=== PATIENT | male | born 2005 | race Caucasian/White ===

== ENCOUNTER 2024-09-16 15:49 | Emergency (ER) | payer BC, SELFPAY ==
[2024-09-16 15:53] VITALS: BP 114/75; PULSE 89; RESP 20; TEMP 36.6; O2SAT 100; BMI 24.1
--- NOTE | 2024-09-16 16:04 | ED_ITS ---
HPI - General Adult General Chief complaint: Nausea/Vomiting Stated complaint: urinating blood, puking Time Seen by Provider: 09/16/24 16:03 History of Present Illness HPI narrative: Patient here intermittent blood in urine over the last two weeks and today having nausea and vomiting. Had exposure to coworker that had influenza A and is now hospitalized. 19-year-old man presenting to the emergency department with concern of intermittent bleeding at the end of urination or last couple of weeks. Today had sudden onset of nausea with vomiting. No hematemesis noted. Has not had fever. Currently not nauseated and not experiencing significant pain other than maybe an ache in the right flank. No other discharge noted. Further questioning reveals a history of recurrent urinary tract infections when was young but it does not sound as though there was any evaluation done. A couple of years ago did have a kidney stone as well. This does not feel like that. Co-worker with influenza a. Related Data Home Medications ?Medication ?Instructions ?Recorded ?Confirmed No Known Home Medications 09/16/24 09/16/24 Allergies Allergy/AdvReac Type Severity Reaction Status Date / Time No Known Drug Allergies Allergy Verified 09/16/24 15:53 Review of Systems Status of ROS: Reports: 6 or more systems reviewed and unremarkable except as noted in History and below Exam Narrative: Exam Narrative: Pleasant. Calm. Offers little information without being specifically questioned. Neck is supple with small upper left anterior cervical lymphadenopathy. Oropharynx is unremarkable. Heart in regular rate and rhythm without murmur or gallop. Lungs are clear. There is minimal discomfort to percussion in the right flank; mostly flanks are ticklish. Abdomen is soft and nontender although maybe a little bit sore along the rib edge. No masses. Extremities are without edema. Is well-perfused. Declines exam. Denies any lesions injury Const: Vital Signs, click to edit/add: Vital Signs - 24 hr 09/16/24 15:53 Temperature 97.9 F Pulse Rate [Pulse Oximeter] 89 Respiratory Rate 20 Blood Pressure [Ri ght Upper Arm] 114/75 Pulse Oximetry 100 Oxygen Delivery Me thod Room Air Documenting provider has reviewed patient's vital signs: yes Course Vital Signs Vital signs: Initial Vital Signs Temperature 97.9 F 09/16/24 15:53 Temperature Source Temporal Artery Scan 09/16/24 15:53 Pulse Rate 89 09/16/24 15:53 Respiratory Rate 20 09/16/24 15:53 Blood Pressure 114/75 09/16/24 15:53 Blood Pressure Mean 88 09/16/24 15:53 Blood Pressure Position Sitting 09/16/24 15:53 Pulse Oximetry 100 09/16/24 15:53 Oxygen Delivery Method Room Air 09/16/24 15:53 Vital Signs Temperature 97.9 F 09/16/24 15:53 Pulse Rate 89 09/16/24 15:53 Respiratory Rate 20 09/16/24 15:53 Blood Pressure 114/75 09/16/24 15:53 Pulse Oximetry 100 09/16/24 15:53 Oxygen Delivery Method Room Air 09/16/24 15:53 Temperature 97.9 F 09/16/24 15:53 Pulse Rate 89 09/16/24 15:53 Respiratory Rate 20 09/16/24 15:53 Blood Pressure 114/75 09/16/24 15:53 Pulse Oximetry 100 09/16/24 15:53 Oxygen Delivery Method Room Air 09/16/24 15:53 Medical Decision Making MDM Narrative Medical decision making narrative: Unusual that a boy with recurrent urinary tract infections would not have had further evaluation. Certainly a ureteral stone might explain the symptoms though with relatively minimal pain. Waiting for urinalysis. Does not have evidence of nephritic/nephrotic syndrome on initial exam. Has not had a sore throat really. Urethritis possible. Does not feel that needs anything for symptom relief. At this point waiting on urinalysis and will proceed from there. Urinalysis obtained and is showing majority red cells. Not clearly infectious. But will be culturing urine. COVID influenza swab are negative I did discuss next steps and workup with Zeferino. He would prefer not to do anything more noting that he is very tired. It is puzzling to me this history of recurrent urinary tract infections. This might represent a less than painful stone as well. Denies likelihood of STI. We will be culturing your urine and call you with results if need treatment. Be seen for fever, uncontrolled pain, repeated vomiting. I would recommend follow-up in primary care clinic to verify clearing of urine. But also to discuss next steps in workup. Your history of spontaneous urinary tract infections are unusual. Lab Data Lab results reviewed: Yes I reviewed the patient's lab results Labs: Lab Results 09/16/24 09/16/24 Range/Units 16:01 17:00 Urine Color Yellow (Yellow) Urine Appearance Clear (Clear) Urine pH 7.0 (5.0-8.5) Ur Specific [place] 1.020 (1.000-1.030) Urine Protein Negative (Negative) Urine Glucose (UA) Negative (Negative) Urine Ketones Negative (Negative) Urine Blood Trace-lysed A (Negative) Urine Nitrite Negative (Negative) Urine Bilirubin Negative (Negative) Urine Urobilinogen 0.2 (0.2-1.0) Ur Leukocyte Esterase Negative (Negative) Urine RBC 5-10 A (0-2) Urine WBC 2-5 (0-5) Ur Squamous Epith Cells None (None-Few) Urine Bacteria Few A (None) SARS-CoV-2 (PCR) Negative SARS-CoV-2 (Negative) Influenza Type A (PCR) Negative PCR FLU A (Negative) Influenza Type B (PCR) Negative PCR FLU B (Negative) RSV (PCR) Negative PCR RSV (Negative) Discharge Plan Discharge Clinical Impression: Hematuria Patient Disposition: Home w/ Parent or Adult Condition: Stable Additional Instructions: We will be culturing your urine and call you with results if need treatment. Be seen for fever, uncontrolled pain, repeated vomiting. I would recommend follow-up in primary care clinic to verify clearing of urine. But also to discuss next steps in workup. Your history of spontaneous urinary tract infections are unusual. Prescriptions: No Action No Known Home Medications Follow Up/Referrals: Provider,Not a Local [Primary Care Provider] - Stand Alone Forms: [employer] Info Instructions
[2024-09-16 16:40] LABS: PCR FLU A Negative PCR FLU A (Negative); PCR FLU B Negative PCR FLU B (Negative); PCR RSV Negative PCR RSV (Negative); SARS PCR* Negative SARS-CoV-2 (Negative)
[2024-09-16 17:13] LABS: Appearance Urine Clear (Clear); Bilirubin Urine Negative (Negative); Blood Urine Trace-lysed (Negative); Color Urine Yellow (Yellow); Glucose Urine Negative (Negative); Ketones Urine Negative (Negative); Leukocyte Esterase Urine Negative (Negative); Nitrite Urine Negative (Negative); Protein Urine Negative (Negative); Urobilinogen Urine 0.2 (0.2-1.0)
[2024-09-16 17:38] LABS: Bacteria Urine Few
[2024-09-17 16:54] LABS: GC DNA Amplified* NOT DETECTED (No Detected)
[2024-09-17 17:00] LABS: Chlamydia DNA Amplified* DETECTED (No Detected)
== END 2024-09-16 18:33 | disposition home or self-care (01) ==
PROVIDERS: Emergency Provider Family Medicine
DX: R31.9 Hematuria, unspecified (principal); R11.10 Vomiting, unspecified
CPT/HCPCS: 81001; 87086; 87491; 87591; 87631; 99283; 99284

== ENCOUNTER 2025-01-20 | Emergency (ER) | payer BC, SELFPAY ==
[2025-01-20 00:03] VITALS: BP 116/81; PULSE 80; RESP 16; TEMP 36.1; O2SAT 99; BMI 26.9
--- NOTE | 2025-01-20 00:13 | ED_ITS ---
HPI - General Adult General Time Seen by Provider: 00:13 <Hannah Pendleton MD - Last Filed: 01/25/25 18:45> Date Seen: 01/20/25 <Hannah Pendleton MD - Last Filed: 01/25/25 18:45> Chief complaint: Urogenital Problems, Male <Hannah Pendleton MD - Last Filed: 01/25/25 18:45> Stated complaint: Blood in urine, hx kidney problems <Hannah Pendleton MD - Last Filed: 01/25/25 18:45> Time Seen by Provider: 01/20/25 00:13 <Hannah Pendleton MD - Last Filed: 01/25/25 18:45> Source: patient and RN notes reviewed <Hannah Pendleton MD - Last Filed: 01/25/25 18:45> Mode of arrival: ambulatory <Hannah Pendleton MD - Last Filed: 01/25/25 18:45> Limitations: no limitations <Hannah Pendleton MD - Last Filed: 01/25/25 18:45> History of Present Illness HPI narrative: Zeferino is a very pleasant 19-year-old male with history of nephrolithiasis, UTI and chlamydia comes to the emergency room for evaluation regarding blood in his urine. He states that he noticed blood today in his urine and tonight at work had the onset of right flank and right-sided abdominal pain. He notes that it is coming and going. It is not associated with fever vomiting or chills. He does not think he has a sexually transmitted disease as his current girlfriend is not sexually active with him. He has not taken any medications at this point. Denies fever or chills. Pain did intensify at work, got better on the drive here and then recurred in the parking lot. <Hannah Pendleton MD - Last Filed: 01/25/25 18:45> Related Data Home medications: Home Medications ?Medication ?Instructions ?Recorded ?Confirmed No Known Home Medications 09/16/2401/10 <Hannah Pendleton MD - Last Filed: 01/25/25 18:45> Allergies/adverse reactions: Allergies Allergy/AdvReac Type Severity Reaction Status Date / Time No Known Drug Allergies Allergy Verified 01/20/25 00:07 <Hannah Pendleton MD - Last Filed: 01/25/25 18:45> Review of Systems Status of ROS: Reports: 10 or more systems reviewed and unremarkable except as noted in History and below <Hannah Pendleton MD - Last Filed: 01/25/25 18:45> Const: Denies: fever or chills <Hannah Pendleton MD - Last Filed: 01/25/25 18:45> ENMT: Denies: nasal congestion <Hannah Pendleton MD - Last Filed: 01/25/25 18:45> Cardio: Denies: chest pain, lightheadedness or shortness of breath with exertion <Hannah Pendleton MD - Last Filed: 01/25/25 18:45> Resp: Denies: shortness of breath or cough <Hannah Pendleton MD - Last Filed: 01/25/25 18:45> GI: Reports: abdominal pain; Denies: nausea or vomiting <Hannah Pendleton MD - Last Filed: 01/25/25 18:45> : Reports: painful urination and blood in urine <Hannah Pendleton MD - Last Filed: 01/25/25 18:45> Musculo: Reports: back pain <Hannah Pendleton MD - Last Filed: 01/25/25 18:45> Integ/Breast: Denies: rash <Hannah Pendleton MD - Last Filed: 01/25/25 18:45> Neuro: Denies: headache <Hannah Pendleton MD - Last Filed: 01/25/25 18:45> [facility] Social History: Social History Smoking Status: Current every day smoker What tobacco products do you use: cigarettes How often do you have a drink containing alcohol: monthly or less How many standard drinks containing alcohol do you have on a typical day: 1 or 2 AUDIT-C Alcohol total score: 1 Non-prescribed substance use: marijuana (any form) Non-prescribed substance use details: daily <Hannah Pendleton MD - Last Filed: 01/25/25 18:45> Exam Narrative: Exam Narrative: Alert and oriented. Very pleasant gentleman in no acute distress. EOM is full. Face symmetrical. Mentation and speech normal. Heart with regular rate and rhythm and lungs are clear bilaterally. Abdomen is soft. No CVA tenderness with percussion. Moving all extremities. <Hannah Pendleton MD - Last Filed: 01/25/25 18:45> Const: Vital Signs, click to edit/add: Vital Signs - 24 hr 01/20/25 00:03 01/20/25 01:50 Temperature 97.0 F L 97.0 F L Pulse Rate [Pulse Oximeter] 80 Respiratory Rate 16 Blood Pressure [Ri ght Upper Arm] 116/81 Pulse Oximetry 99 Oxygen Delivery Me thod Room Air <Hannah Pendleton MD - Last Filed: 01/25/25 18:45> Vital Signs, click to edit/add: Vital Signs - 24 hr 01/20/25 00:03 01/20/25 01:50 Temperature 97.0 F L 97.0 F L Pulse Rate [Pulse Oximeter] 80 Respiratory Rate 16 Blood Pressure [Ri ght Upper Arm] 116/81 Pulse Oximetry 99 Oxygen Delivery Me thod Room Air <Gabriella Gannon MD - Last Filed: 01/20/25 02:17> Documenting provider has reviewed patient's vital signs: yes <Hannah Pendleton MD - Last Filed: 01/25/25 18:45> Course Course ED Course: Differential diagnosis includes but is not limited to UTI, pyelonephritis, nephrolithiasis, ureteral colic. Given past history of STI will also check for GC chlamydia. In agreement with this plan. CBC, basic panel as well as treatment with Toradol for discomfort is also ordered. Abdominal CT without contrast ordered <Hannah Pendleton MD - Last Filed: 01/25/25 18:45> Reevaluation(s) Reevaluation #1: CBC is reassuring. Patient has is CT that does show up bladder wall thickening concerning for cystitis although his urinalysis is reassuring with no evidence of wbc's. He is feeling much better after Toradol. GC chlamydia pending at this time. Patient has received 1 g of Rocephin. At this time will sign this patient out to my colleague Dr. Gannon for review of GC chlamydia and final disposition <Hannah Pendleton MD - Last Filed: 01/25/25 18:45> Reevaluation #2: patient signed out to me at shift change pending GC chlamydia. GC Chlamydia negative. Given patients urinary symptoms will discharge with course of keflex pending urine culture. Plan for discharge with close outpatient follow-up, supportive care, antibiotics. Encouraged close outpatient follow-up with primary care provider, urology. Return precautions discussed. Patient understands and agrees with the plan. <Gabriella Gannon MD - Last Filed: 01/20/25 02:17> Vital Signs Vital signs: Initial Vital Signs Temperature 97.0 F L 01/20/25 00:03 Temperature Source Temporal Artery Scan 01/20/25 00:03 Pulse Rate 80 01/20/25 00:03 Respiratory Rate 16 01/20/25 00:03 Blood Pressure 116/81 01/20/25 00:03 Blood Pressure Mean 92 01/20/25 00:03 Pulse Oximetry 99 01/20/25 00:03 Oxygen Delivery Method Room Air 01/20/25 00:03 Vital Signs Temperature 97.0 F L 01/20/25 00:03 Pulse Rate 80 01/20/25 00:03 Respiratory Rate 16 01/20/25 00:03 Blood Pressure 116/81 01/20/25 00:03 Pulse Oximetry 99 01/20/25 00:03 Oxygen Delivery Method Room Air 01/20/25 00:03 Temperature 98.0 F 01/20/25 02:19 Pulse Rate 75 01/20/25 02:19 Respiratory Rate 16 01/20/25 02:19 Blood Pressure 121/74 01/20/25 02:19 Pulse Oximetry 99 01/20/25 02:19 Oxygen Delivery Method Room Air 01/20/25 02:19 <Hannah Pendleton MD - Last Filed: 01/25/25 18:45> Initial Vital Signs Temperature 97.0 F L 01/20/25 00:03 Temperature Source Temporal Artery Scan 01/20/25 00:03 Pulse Rate 80 01/20/25 00:03 Respiratory Rate 16 01/20/25 00:03 Blood Pressure 116/81 01/20/25 00:03 Blood Pressure Mean 92 01/20/25 00:03 Pulse Oximetry 99 01/20/25 00:03 Oxygen Delivery Method Room Air 01/20/25 00:03 Vital Signs Temperature 97.0 F L 01/20/25 00:03 Pulse Rate 80 01/20/25 00:03 Respiratory Rate 16 01/20/25 00:03 Blood Pressure 116/81 01/20/25 00:03 Pulse Oximetry 99 01/20/25 00:03 Oxygen Delivery Method Room Air 01/20/25 00:03 Temperature 98.0 F 01/20/25 02:19 Pulse Rate 75 01/20/25 02:19 Respiratory Rate 16 01/20/25 02:19 Blood Pressure 121/74 01/20/25 02:19 Pulse Oximetry 99 01/20/25 02:19 Oxygen Delivery Method Room Air 01/20/25 02:19 <Gabriella Gannon MD - Last Filed: 01/20/25 02:17> Medications Administered Medications: Discontinued Medications Generic Name Dose Route Start Last Admin Trade Name Freq PRN Reason Stop Dose Admin Ceftriaxone Sodium 1 gm/ 100 mls @ 200 mls/hr 01/20/25 01:09 01/20/25 01:50 Sodium Chloride IVPB 01/20/25 01:10 Infused ONCE ONE Infusion Ketorolac Tromethamine 15 mg 01/20/25 00:19 01/20/25 00:58 Ketorolac 15 Mg/Ml Inj IVP 01/20/25 00:20 15 mg ONCE ONE Administration <Hannah Pendleton MD - Last Filed: 01/25/25 18:45> Discontinued Medications Generic Name Dose Route Start Last Admin Trade Name Freq PRN Reason Stop Dose Admin Ceftriaxone Sodium 1 gm/ 100 mls @ 200 mls/hr 01/20/25 01:09 01/20/25 01:50 Sodium Chloride IVPB 01/20/25 01:10 Infused ONCE ONE Infusion Ketorolac Tromethamine 15 mg 01/20/25 00:19 01/20/25 00:58 Ketorolac 15 Mg/Ml Inj IVP 01/20/25 00:20 15 mg ONCE ONE Administration <Gabriella Gannon MD - Last Filed: 01/20/25 02:17> Medical Decision Making MDM Narrative Medical decision making narrative: 1. Hematuria <Hannah Pendleton MD - Last Filed: 01/25/25 18:45> Lab Data Lab results reviewed: Yes I reviewed the patient's lab results <Hannah Pendleton MD - Last Filed: 01/25/25 18:45> Labs: Lab Results 01/20/25 01/20/25 Range/Units 00:30 00:50 WBC 7.71 (4.50-11.00) K/uL RBC 4.49 (4.30-5.90) m/uL Hgb 13.8 (13.5-17.5) gm/dL Hct 41.8 (37.0-53.0) % MCV 93 (80-100) fL MCH 31 (26-34) pg MCHC 33 (32-36) gm/dL RDW Coeff of Hyac[place] 12.1 (11.5-15.5) % Plt Count 333 (140-440) K/uL Neut % (Auto) 56.3 (42.0-72.0) % Lymph % (Auto) 32.9 (20-44) % [place] % (Auto) 7.8 (0.0-11.0) % Eos % (Auto) 1.7 (0.0-7.0) % Baso % (Auto) 0.3 (0.0-3.0) % Neut # (Auto) 4.34 (1.7-7.0) K/uL Lymph # (Auto) 2.54 (0.90-2.90) K/uL [place] # (Auto) 0.60 (0.00-0.90) K/UL Eos # (Auto) 0.13 (0.00-0.50) K/uL Baso # (Auto) 0.02 (0.00-0.30) K/uL Abs Immat Gran (auto) 0.08 (0.00-0.30) K/uL Imm/Tot Granulo (auto) 1.0 % Sodium 138 (135-149) mmol/L Potassium 4.0 (3.6-5.1) mmol/L Chloride 105 (96-114) mmol/L Carbon Dioxide 25 (20-32) mmol/L Anion Gap 8 (7-15) mEq/L BUN 15 (5-24) mg/dL Creatinine 0.8 (0.5-1.5) mg/dL Estimated Creat Clear 160.32 Estimated GFR 129 ml/min Glucose 97 (60-115) mg/dL Calcium 9.2 (8.4-10.6) mg/dL Urine Color Yellow (Yellow) Urine Appearance Clear (Clear) Urine pH 6.0 (5.0-8.5) Ur Specific [place] 1.015 (1.000-1.030) Urine Protein Negative (Negative) Urine Glucose (UA) Negative (Negative) Urine Ketones Negative (Negative) Urine Blood Trace-intact A (Negative) Urine Nitrite Negative (Negative) Urine Bilirubin Negative (Negative) Urine Urobilinogen 0.2 (0.2-1.0) Ur Leukocyte Esterase Negative (Negative) Urine RBC 0-2 (0-2) Urine WBC 0-2 (0-5) Ur Squamous Epith Cells Few (None-Few) Urine Bacteria None (None) C.trachomatis Ampl DNA NOT DETECTED (No Detected) N.gonorrhoeae Ampl DNA NOT DETECTED (No Detected) <Hannah Pendleton MD - Last Filed: 01/25/25 18:45> Lab Results 01/20/25 01/20/25 Range/Units 00:30 00:50 WBC 7.71 (4.50-11.00) K/uL RBC 4.49 (4.30-5.90) m/uL Hgb 13.8 (13.5-17.5) gm/dL Hct 41.8 (37.0-53.0) % MCV 93 (80-100) fL MCH 31 (26-34) pg MCHC 33 (32-36) gm/dL RDW Coeff of Hyacinth 12.1 (11.5-15.5) % Plt Count 333 (140-440) K/uL Neut % (Auto) 56.3 (42.0-72.0) % Lymph % (Auto) 32.9 (20-44) % [place] % (Auto) 7.8 (0.0-11.0) % Eos % (Auto) 1.7 (0.0-7.0) % Baso % (Auto) 0.3 (0.0-3.0) % Neut # (Auto) 4.34 (1.7-7.0) K/uL Lymph # (Auto) 2.54 (0.90-2.90) K/uL [place] # (Auto) 0.60 (0.00-0.90) K/UL Eos # (Auto) 0.13 (0.00-0.50) K/uL Baso # (Auto) 0.02 (0.00-0.30) K/uL Abs Immat Gran (auto) 0.08 (0.00-0.30) K/uL Imm/Tot Granulo (auto) 1.0 % Sodium 138 (135-149) mmol/L Potassium 4.0 (3.6-5.1) mmol/L Chloride 105 (96-114) mmol/L Carbon Dioxide 25 (20-32) mmol/L Anion Gap 8 (7-15) mEq/L BUN 15 (5-24) mg/dL Creatinine 0.8 (0.5-1.5) mg/dL Estimated Creat Clear 160.32 Estimated GFR 129 ml/min Glucose 97 (60-115) mg/dL Calcium 9.2 (8.4-10.6) mg/dL Urine Color Yellow (Yellow) Urine Appearance Clear (Clear) Urine pH 6.0 (5.0-8.5) Ur Specific [place] 1.015 (1.000-1.030) Urine Protein Negative (Negative) Urine Glucose (UA) Negative (Negative) Urine Ketones Negative (Negative) Urine Blood Trace-intact A (Negative) Urine Nitrite Negative (Negative) Urine Bilirubin Negative (Negative) Urine Urobilinogen 0.2 (0.2-1.0) Ur Leukocyte Esterase Negative (Negative) Urine RBC 0-2 (0-2) Urine WBC 0-2 (0-5) Ur Squamous Epith Cells Few (None-Few) Urine Bacteria None (None) C.trachomatis Ampl DNA NOT DETECTED (No Detected) N.gonorrhoeae Ampl DNA NOT DETECTED (No Detected) <Gabriella Gannon MD - Last Filed: 01/20/25 02:17> Imaging Data CT scan - abdomen: Attestation: I have reviewed the pertinent imaging results. <Hannah Pendleton MD - Last Filed: 01/25/25 18:45> My impression: I do not note stone in the ureter. <Hannah Pendleton MD - Last Filed: 01/25/25 18:45> Radiologist's impression: wer chest: Unremarkable. Liver: Unremarkable. Normal in size and attenuation. No suspicious masses. Gallbladder and bile ducts: Unremarkable. No stones or inflammation. No biliary dilatation. Pancreas: Unremarkable. No mass or inflammation. Spleen: Unremarkable. Normal in size. No masses. Adrenal glands: Unremarkable. No nodules. Kidneys: Unremarkable. No suspicious masses, stones, or hydronephrosis. GI tract: Unremarkable. Normal in caliber. No sign of mass or inflammation. Normal appendix. Vasculature: Abdominal aorta is normal in caliber. Mesenteric arteries are patent. Lymph nodes: No lymphadenopathy. Peritoneum/Abdominal Wall: Unremarkable. No sign of mass or infiltration. No free air or significant free fluid. Pelvis: Moderate circumferential bladder wall thickening.. Bones: Unremarkable for age. IMPRESSION: Moderate circumferential bladder wall thickening concerning for cystitis. Recommend correlation with urinalysis. Otherwise, no acute intra-abdominal/pelvic abnormality, including obstructive uropathy or appendicitis. <Hannah Pendleton MD - Last Filed: 01/25/25 18:45> Discharge Plan Discharge Clinical Impression: Hematuria, Flank pain <Hannah Pendleton MD - Last Filed: 01/25/25 18:45> Patient Disposition: Home, Self-Care <Hannah Pendleton MD - Last Filed: 01/25/25 18:45> Condition: Improved <Hannah Pendleton MD - Last Filed: 01/25/25 18:45> Additional Instructions: Follow-up with your primary MD for referral to Urology if needed. You will need to recheck with your primary and have a urinalysis done to make sure that you have complete resolution of the blood in her urine. Please take antibiotic as directed. Please take Tylenol or ibuprofen as needed for fever, pain. Return to the emergency department if any worsening symptoms. <Hannah Pendleton MD - Last Filed: 01/25/25 18:45> Prescriptions: No Action No Known Home Medications <Hannah Pendleton MD - Last Filed: 01/25/25 18:45> Follow Up/Referrals: Provider,Not a Local [Primary Care Provider, Family Practice] <Hannah Pendleton MD - Last Filed: 01/25/25 18:45> Stand Alone Forms: [employer] Info Instructions <Hannah Pendleton MD - Last Filed: 01/25/25 18:45>
--- NOTE | 2025-01-20 00:19 | CRLHL7_ITS ---
For Patients: As a result of the Century Cures Act, medical imaging exams and procedure reports are released immediately into your electronic medical record. You may view this report before your referring provider. If you have questions, please contact your health care provider. INDICATION: Right-sided abdominal pain and hematuria. TECHNIQUE: CT abdomen and pelvis acquired with 100 cc Omnipaque 350 IV contrast. COMPARISON: None. FINDINGS: Lower chest: Unremarkable. Liver: Unremarkable. Normal in size and attenuation. No suspicious masses. Gallbladder and bile ducts: Unremarkable. No stones or inflammation. No biliary dilatation. Pancreas: Unremarkable. No mass or inflammation. Spleen: Unremarkable. Normal in size. No masses. Adrenal glands: Unremarkable. No nodules. Kidneys: Unremarkable. No suspicious masses, stones, or hydronephrosis. GI tract: Unremarkable. Normal in caliber. No sign of mass or inflammation. Normal appendix. Vasculature: Abdominal aorta is normal in caliber. Mesenteric arteries are patent. Lymph nodes: No lymphadenopathy. Peritoneum/Abdominal Wall: Unremarkable. No sign of mass or infiltration. No free air or significant free fluid. Pelvis: Moderate circumferential bladder wall thickening.. Bones: Unremarkable for age. IMPRESSION: Moderate circumferential bladder wall thickening concerning for cystitis. Recommend correlation with urinalysis. Otherwise, no acute intra-abdominal/pelvic abnormality, including obstructive uropathy or appendicitis. Please note that all CT scans at this facility use dose modulation, iterative reconstruction, and/or weight-based dosing when appropriate to reduce radiation dose to as low as reasonably achievable. Dictated by Srikanth Matthews MD @ 01/20/2025 12:46:19 AM (Electronically Signed)
[2025-01-20 00:40] LABS: Appearance Urine Clear (Clear); Bilirubin Urine Negative (Negative); Blood Urine Trace-intact (Negative); Color Urine Yellow (Yellow); Glucose Urine Negative (Negative); Ketones Urine Negative (Negative); Leukocyte Esterase Urine Negative (Negative); Nitrite Urine Negative (Negative); Protein Urine Negative (Negative); Specific Gravity Urine 1.015 (1.000-1.030); Urobilinogen Urine 0.2 (0.2-1.0)
[2025-01-20] MEDS: KETOROLAC 15 MG/ML inj IVP (00:58)
[2025-01-20 01:03] LABS: Basophils Absolute Auto 0.02 K/uL (0.00-0.30); Basophils Percent Auto 0.3 % (0.0-3.0); Eosinophils Absolute Auto 0.13 K/uL (0.00-0.50); Eosinophils Percent Auto 1.7 % (0.0-7.0); Hematocrit 41.8 % (37.0-53.0); Hemoglobin* 13.8 gm/dL (13.5-17.5); Immature Granulocytes Abs Auto 0.08 K/uL (0.00-0.30); Lymphocytes Absolute Auto 2.54 K/uL (0.90-2.90); Lymphocytes Percent Auto 32.9 % (20-44); Mean Corpuscular HGB Conc 33 gm/dL (32-36); Mean Corpuscular Hemoglobin 31 pg (26-34); Mean Corpuscular Volume 93 fL (80-100); Monocytes Percent Auto 7.8 % (0.0-11.0); Neutrophils Absolute Auto 4.34 K/uL (1.7-7.0); Neutrophils Percent Auto 56.3 % (42.0-72.0); Platelet Count* 333 K/uL (140-440); RDW Coefficient of Variation % 12.1 % (11.5-15.5); Red Blood Count 4.49 m/uL (4.30-5.90); White Blood Count* 7.71 K/uL (4.50-11.00)
[2025-01-20 01:05] LABS: RBC Urine 0-2 (0-2); Squamous Epithelial Cell Urine Few (None-Few); WBC Urine 0-2 (0-5)
[2025-01-20 01:07] LABS: Slide Review Reflex No
[2025-01-20] MEDS: cefTRIAXone 1 GM in 0.9 % SODIUM CHLORIDE Mini-bag 100 ML IVPB (01:15)
[2025-01-20 01:22] LABS: Chloride* 105 mmol/L (96-114); Sodium* 138 mmol/L (135-149)
[2025-01-20 01:25] LABS: Anion Gap 8 mEq/L (7-15); Blood Urea Nitrogen* 15 mg/dL (5-24); Calcium* 9.2 mg/dL (8.4-10.6); Carbon Dioxide* 25 mmol/L (20-32); Creatinine* 0.8 mg/dL (0.5-1.5); Est. Creatinine Clearance* 160.32; Estimated Glomerular Filt Rate 129 ml/min; Glucose* 97 mg/dL (60-115)
[2025-01-20 01:50] VITALS: TEMP 36.1
[2025-01-20 02:09] LABS: Chlamydia DNA Amplified* NOT DETECTED (No Detected); GC DNA Amplified* NOT DETECTED (No Detected)
[2025-01-20 02:19] VITALS: BP 121/74; PULSE 75; RESP 16; TEMP 36.7; O2SAT 99
== END 2025-01-20 02:20 | disposition home or self-care (01) ==
PROVIDERS: Family Medicine; Emergency Provider Emergency Medicine
DX: R31.9 Hematuria, unspecified (principal); R10.9 Unspecified abdominal pain
CPT/HCPCS: 36415; 74176; 80048; 81001; 85025; 87491; 87591; 96365; 96375; 99284; J0696; J1885